=== PATIENT | male | born 1955 | race Asian ===

== ENCOUNTER 2022-11-19 11:00 | Outpatient (CLI) | payer OTHER | END 2022-11-19 11:07 | disposition home or self-care (01) | LOC: RAD 11:00 | PROVIDERS: ATTEND Internal Medicine | DX: Z01.810 Encounter for preprocedural cardiovascular examination (principal); I10 Essential (primary) hypertension; M54.50 Low back pain, unspecified; E03.9 Hypothyroidism, unspecified; E78.9 Disorder of lipoprotein metabolism, unspecified; M89.9 Disorder of bone, unspecified ==